=== PATIENT | male | born 1965 | race Caucasian/White ===

== ENCOUNTER 2017-01-26 20:39 | Emergency (ER) | payer OTHER ==
[~2017-01-26] VITALS: Ht 177.8 cm; Wt 83.5 kg
[2017-01-26 23:48] LABS: BASOPHIL % 0.4 % (0-2); PLATELET COUNT 274 x10^3mcL (130-400); RED CELL DISTRIBUTION WIDTH 14.3 % (11.5-14.5)
[2017-01-27 00:04] LABS: CARBON DIOXIDE 31.9 mmol/L (21-32); CHLORIDE SERUM 104 mmol/L (98-107); CREATININE SERUM 0.8 mg/dL (0.7-1.3); GFR1 > 60 mL/min; GLUCOSE SERUM 74 mg/dL (74-106); POTASSIUM SERUM 3.6 mmol/L (3.5-5.1); SODIUM SERUM 141 mmol/L (136-145)
[2017-01-27 00:06] LABS: ALBUMIN 3.6 g/dL (3.4-5.0); ALKALINE PHOSPHATASE 109 U/L (46-116); ALT/SGPT 29 U/L (16-63); AST/SGOT 15 U/L (15-37); BILIRUBIN TOTAL 0.4 mg/dL (0.20-1.00); LIPASE 60 IU/L (73-393); TOTAL PROTEIN, SERUM 7.1 g/dL (6.4-8.2)
[2017-01-27 02:28] VITALS: BP 132/78
== END 2017-01-27 02:28 | disposition home or self-care (01) ==
LOC: ED 20:39
PROVIDERS: Emergency Medicine
DX: M54.5 Low back pain (principal); R10.31 Right lower quadrant pain; E11.9 Type 2 diabetes mellitus without complications; Z90.49 Acquired absence of other specified parts of digestive tract; Z79.4 Long term (current) use of insulin
CPT/HCPCS: 36415; 82962; J2270

== ENCOUNTER 2017-01-30 16:09 | Inpatient (IN) | payer OTHER ==
[~2017-01-30] VITALS: Ht 177.8 cm; Wt 82.5 kg
--- NOTE | 2017-01-30 16:29 | NUR ---
PT RETURNED TO LOBBY PENDING ROOM AVAILABILITY. VSS. RESPS E/U. NO S/S OF DISTRESS NOTED.
--- NOTE | 2017-01-30 17:57 | NUR ---
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
--- NOTE | 2017-01-30 18:04 | NUR ---
PT REPORTS COMING TO ED TODAY DUE TO INCREASED PAIN TO BL LOWER BACK AND TAKING A "HIGH" BLOOD SUGAR READING AT HOME. PT REPORTS HE HAS NEVER BEEN IN [facility] IN THE PAST. PT SPEAKS IN FULL SENTENCES; SKIN COLOR IS WNL.
[2017-01-30 19:06] LABS: CALCIUM 9.6 mg/dL (8.5-10.1); CARBON DIOXIDE 28.2 mmol/L (21-32); CHLORIDE SERUM 94 mmol/L (98-107); CREATININE SERUM 1.3 mg/dL (0.7-1.3); GFR1 > 60 mL/min; GLUCOSE SERUM 392 mg/dL (74-106); POTASSIUM SERUM 3.8 mmol/L (3.5-5.1); SODIUM SERUM 130 mmol/L (136-145)
--- NOTE | 2017-01-30 19:10 | NUR ---
REC'D REPORT FROM VALERIE YANG TO ASSUME CARE OF THE PT.
[2017-01-30 19:11] LABS: ALBUMIN 3.9 g/dL (3.4-5.0); ALKALINE PHOSPHATASE 127 U/L (46-116); ALT/SGPT 35 U/L (16-63); AST/SGOT 16 U/L (15-37); BILIRUBIN TOTAL 0.54 mg/dL (0.20-1.00); TOTAL PROTEIN, SERUM 7.5 g/dL (6.4-8.2)
[2017-01-30 19:22] LABS: BASOPHIL % 0.3 % (0-2); PLATELET COUNT 294 x10^3mcL (130-400); RED CELL DISTRIBUTION WIDTH 13.4 % (11.5-14.5)
--- NOTE | 2017-01-30 19:30 | NUR ---
MEDICATED PT ORDERED. PLEASE SEE EMAR.
--- NOTE | 2017-01-30 20:32 | NUR ---
URINE FILM OR TAPE LIBRARIAN CARRIED TO LAB FOR US AND UDS AT THIS TIME.
--- NOTE | 2017-01-30 20:59 | NUR ---
MEDICATED PT FOR PAIN. PLEASE SEE EMAR.
[2017-01-30] MEDS ORDERED: WELLBUTRIN XL300 M1 PO (21:01)
[2017-01-30] MEDS ORDERED: CYMBALTA30 M1 PO (21:01)
[2017-01-30] MEDS ORDERED: GABAPENTIN300 M4 PO (21:03)
[2017-01-30] MEDS ORDERED: NOR10T PO (21:03)
--- NOTE | 2017-01-30 21:29 | NUR ---
REPORT GIVEN TO VALERIE PERES TO ASSUME CARE OF THE PT.
[2017-01-30 21:45] LABS: microscopic required? NO
--- NOTE | 2017-01-30 21:45 | NUR ---
RECEIVED PT FROM ED VIA [facility], CAME IN DUE TO HIGH BLOOD SUGAR AND BACK PAIN. AAOX4. NO SOB NOTED. DENIES CHEST PAIN/PRESSURE, ST W/ BBB, HR AT 106. DENIES ABDOMINAL DISCOMFORT. C/O 6/10 DULL AND STABBING LOWER BACK PAIN. W/ INULIN PUMP (HUMALOG 1 UNIT/HR AND HE DOES BOLUS DEPENDING ON HIS CALORIC INTAKE). DENIES ABDOMINAL DISCOMFORT. BOWEL SOUNDS ACTIVE. SIDE RAILS UPX2. CALL LIGHT ON REACH. ENDORSED TO PRIMARY NURSE SONA FOR CONTINUITY OF CARE.
--- NOTE | 2017-01-30 21:50 | NUR ---
RECEIVED PT FROM VALERIE BIRD. PT AOX4. TELE #49, ST WITH BBB. DENIES CP/PRESSURE. PULSES PRESENT, NO EDEMA NOTED. LUNG SOUNDS CLEAR, ON RA. DENIES SOB/DIFFICULTY BREATHING. BOWEL SOUNDS ACTIVE, PT REPORTS TENDERNESS WHEN PALPATING LOWER QUADRANT OF ABD. VOIDS FREELY, BRP. PT AMBULATORY. SKIN INTACT. IV IN LAC, INTACT AND PATENT. BED IN LOWEST POSITION. CALL LIGHT WITHIN REACH. WILL CONTINUE TO MONITOR.
[2017-01-30 21:52] LABS: UA SPECIFIC GRAVITY <=1.005 (1.005-1.035); urine erythrocyte NEGATIVE (NEGATIVE)
[2017-01-30 21:56] VITALS: BP 148/82
[2017-01-30 21:59] VITALS: BP 148/82
[2017-01-30 22:01] LABS: AMPHETAMINE QUAL UR NONE DETECTED (NEG <=1000)
[2017-01-30 22:03] VITALS: Ht 177.8 cm; Wt 82.5 kg
--- NOTE | 2017-01-31 02:46 | NUR ---
PT RESTING IN BED. RR EVEN AND UNLABORED. NO ACUTE DISTRESS NOTED. CALL LIGHT WITHIN REACH. BED IN LOWEST POSITION. WILL CONTINUE TO MONITOR.
[2017-01-31 05:53] VITALS: BP 133/68
[2017-01-31 06:20] LABS: BASOPHIL % 0.5 % (0-2); PLATELET COUNT 272 x10^3mcL (130-400); RED CELL DISTRIBUTION WIDTH 13.8 % (11.5-14.5)
[2017-01-31 06:32] LABS: CALCIUM 9.1 mg/dL (8.5-10.1); CARBON DIOXIDE 26.2 mmol/L (21-32); CHLORIDE SERUM 98 mmol/L (98-107); CREATININE SERUM 1.1 mg/dL (0.7-1.3); GFR1 > 60 mL/min; GLUCOSE SERUM 402 mg/dL (74-106); MAGNESIUM 2.2 mg/dL (1.8-2.4); POTASSIUM SERUM 4.7 mmol/L (3.5-5.1); SODIUM SERUM 135 mmol/L (136-145)
--- NOTE | 2017-01-31 07:17 | NUR ---
RECEIVED HANDOFF REPORT FROM NOC NURSE. PATIENT IS ALERT AND CALM. PATIENT IS TELE 49 MONITOR SHOWS SINUS TACHYCARDIA HR 114. PULSES ARE PRESENT NO EDEMA NOTED. PATIENT IS ON ROOM AIR, CHEST RISE EQUAL AND UNLABORED. PATIENT NOT SURE WHEN HE LAST HAD A BM, BOWEL SOUNDS ARE PRESENT BUT HYPOACTIVE. PATIENT DENIES NAUSEA AND ABDOMINAL PAIN. PATIENT STATES NO ISSUES WITH VOIDING. PATIENT STATES NO WEAKNESS UPON STANDING JUST BACK PAIN FROM PROLONGED TIME ON HIS FEET. SKIN IS WARM, DRY AND INTACT. PATIENT DENIES PAIN AT THIS TIME. PATIENT HAS NS INFUSING AT 80 ML/HR TO LAC SITE WNL. CALL LIGHT IS WITHIN REACH.
--- NOTE | 2017-01-31 08:23 | NUR ---
PATIENT IS SITTING UP IN BED LOOKING OVER LUNCH MENU. PATIENT IS NOT IN DISTRESS. PATIENT TOLERATED MEDICATIONS. 25 UNITS INSULIN LEVEMIR INJECTED INTO RIGHT ARM SQ. PATIENT DID NOT WANT TO INJECT IN ABDOMEN DUE TO SCARING. PATIENT EDUCTED ABOUT ABDOMEN ABSORBING MEDICATION BETTER, PATIENT VERBALIZED UNDERSTANDING BUT STILL WANTED INJECTION IN ARM.
--- NOTE | 2017-01-31 09:45 | NUR ---
PATIENT LAYING DOWN IN BED PATIENT STATES THAT HE IS PASSING GAS BUT DOES NOT HAVE THE URGE TO POOP YET PATIENT DENIES NAUSEA AND VOMITING.
[2017-01-31 10:20] VITALS: BP 116/64
--- NOTE | 2017-01-31 10:29 | NUR ---
DOCTOR STATED THAT PATIENT TO STAY TODAY TO MONITOR BLOOD SUGAR LEVELS. DOCTOR ADDED DUCOLAX AND SENOKOT AND LEVIMIR WHICH HAVE ALREADY BEEN GIVEN. FOLLOW UP ON WHETHER PATIENT HAS BOWEL MOVEMENT OR NOT.
--- NOTE | 2017-01-31 11:34 | NUR ---
PATIENT GIVEN 6 UNITS OF INSULIN FOR BLOOD SUGAR RESULT OF 237 IN RIGHT UPPER ARM BECAUSE PATIENT DOES NOT WANT INSULIN ADMINISTERED IN ABDOMEN DUE TO SCARRING. PATIENT ALSO STATED THAT WHILE GOING TO THE BATHROOM HE BEARED DOWN TO URINATE AND BECAME LIGHT ENDED, FELT LIKE "I WAS HAVING A PANIC ATTACK." PATIENT STATES THIS IS THE FIRST TIME IT HAS HAPPENED, HE HAS NERVE ISSUE THAT CAUSE HIM PROBLEMS IN OTHER AREAS BUT WANTED TO KNOW WHY THAT HAPPENED. EDUCATED PATIENT ABOUT NOT BEARING DOWN AND STIMULATING A VAGAL RESPONSE. PROVIDED PATIENT WITH URINAL AND INSTRUCTED HIM TO USE IT IF HE FEELS LIGHT HEADED UPON STANDING.
--- NOTE | 2017-01-31 12:00 | NUR ---
PATIENT SITTING UP IN BED. PATIENT IS NOT IN DISTRESS PATIENT STATES THAT HIS PAIN IS CONTROLLED AT THIS TIME. PATIENT STATES THAT HE DOESNT FEEL BLOATED OR DISTENDED PATIENT STATES NO NAUSEA OR VOMITING. PATIENT STATES PASSING GAS BUT UNABLE TO POOP AT THIS TIME. CALL LIGHT WITHIN REACH.
--- NOTE | 2017-01-31 13:15 | NUR ---
PATIENT IS RESTING IN BED, PATIENT STATES PAIN IS TOLERABLE AT THIS TIME. PATIENT IS NOT IN DISTRESS, CHEST RISE EQUAL AND UNLABORED. CALL LIGHT IS WITHIN REACH.
--- NOTE | 2017-01-31 15:48 | NUR ---
PATIENT RESTING IN BED PATIENT STATES PAIN IS TOLERABLE AT THIS TIME. PATIENT IS NOT IN DISTRESS. PATIENT IS ON ROOM AIR, BREATHING IS EVEN AND UNLABORED. CALL LIGHT IS WITHIN REACH.
--- NOTE | 2017-01-31 17:28 | NUR ---
PATIENT IS LAYING DOWN IN BED. PATIENT IS NOT IN DISTRESS, PATIENT STATES PAIN IS ADEQUATELY CONTROLLED AT THIS TIME. PATIENT DENIES ABDOMINAL PAIN, DISTENTION, BLOATING, NAUSEA AND VOMITING. PATIENT STATES PASSING GAS, "I FEEL LIKE A POOP IS BUILDING BUT ITS JUST NOT READY YET." CALL LIGHT WITHIN REACH.
--- NOTE | 2017-01-31 18:33 | NUR ---
PATIENT TOLERATED DINNER. PATIENT IS ALERT AND ORIENTED X4 PATIENT IS TELE 49 NSR HR OF 90. NO EDEMA OBSERVED, SCDS AT BEDSIDE BUT NOT ON DUE TO FREQUENT BATHROOM TRIPS. PATIENT IS ON ROOM AIR, RR IS 18. PATIENT IS NOT IN DISTRESS, CHEST RISE IS EQUAL AND UNLABORED. PATIENT DENIES ABDOMINAL PAIN, NAUSEA, VOMITING. PATIENT CANNOT REMEMBER THE LAST TIME HE HAD A BM BUT STATES HE IS PASSING GAS. PATIENT STATES NO ISSUES WITH VOIDING. PATIENT STATES THAT HE HAS PAIN TO HIS BACK BUT THAT AT THIS TIME THE PAIN IS ADEQUATELY CONTROLLED WITH NORCO. PATIENT HAS NS INFUSING AT 80 ML/HR TO LAC, SITE WNL. CALL LIGHT IS WITHIN REACH.
[2017-01-31 18:46] VITALS: BP 124/86
[2017-01-31 19:45] VITALS: BP 118/71
--- NOTE | 2017-01-31 19:45 | NUR ---
PATIENT RECEIVED IN BED AWAKE, ALERT AND ORIENTED X4, SPEECH CLEAR. BREATHING EVEN AND UNLABORED, BS CLEAR, PATIENT ON ROOM AIR SAT 97%,DENIES SOB. DENIES CHEST PAINS, HR=65BPM, RHYTHM REGULAR, TELE#49 SR W/ BBB. IV SITE CHANGED PER PATIENT REQUEST. AMBULATORY WITH STEADY GAIT, PATIENT CLAIMED THAT HE HAD CHRONIC BACK PAIN AND REQUIRES PAIN MEDS, STATED PAIN IS AT 4/10 NOW BEARABLE, INFORMED ABOUT PAIN MANAGEMENT. PATIENT STATED BEEN PASSIN GAS AND FEELS HE'LL EVENTUALLY HAVE BM IN AM. APPETITE GOOD, DENIES N/V. PATIENT HAD AN INPLANTED INSULIN PUMP WHICH IS OFF THIS TIME ,NOTED RT SIDE OF ABDOMEN. SAFETY PRECAUTIONS MAINTAINED. WILL CONTINUE TO MONITOR.
--- NOTE | 2017-01-31 21:02 | NUR ---
MEDICATED WITH NORCO FOR COMPLAINT OF GENERALIXED BODY PAIN BACK MORE PRONOUNCED TO HIS BACK. MEDICATED PRN ,MADE COMFORTABLE IN BED. WILL CHECK EFFECTIVENESS.
--- NOTE | 2017-01-31 22:00 | NUR ---
CHECKED EFFECTIVENESS OF PAIN MEDS,STATED PAIN IS SLOWLY SUBSIDING.
--- NOTE | 2017-02-01 00:07 | NUR ---
PATIENT CALLED AND STATED HE THINKS HIS BLOOD SUGAR LEVEL IS LOW. CHECKED IMMEDIATLEY AND IT WAS 51 FIRST AND 41 SECOND, PATIENT IS RESPONSIVE AND ORIENTED, DIAPHORETIC, WILL GIVE D50 PER PROTOCOL AND WILL ORDER STAT SERUM GLUCOSE.
--- NOTE | 2017-02-01 00:49 | NUR ---
RE-CHECKED BS AFTER D50 1 AMP GIVEN WAS 152. PATIEN STATED FEELING BETTER. ALSO COMPLAINED OF GENERALIZED BODY PAIN MOSTLY BACK, MEDICATED PRN. WILL CHECK EFFECTIVENESS.
--- NOTE | 2017-02-01 01:46 | NUR ---
PATIENT SLEEPING EASILY AWAKEN, STATED PAIN AT 1/10 COMFORTABLE.
--- NOTE | 2017-02-01 06:10 | NUR ---
PATIENT RESTED WELL AND SLEPT OFF AND ON DURING THE SHIFT. HAD X1 EPISOD OF HYPOGLYCEMIA, PROTOCOL INITIATED. COMPLAINED OF PAIN AND RECEIVED RELIEF. IV SITE NO SIGN OF INFILTRATION. NO BM AFTER SENOKOT AND DULCOLAX GIVEN. STATED ONLY PASSING GAS. SAFETY OBSERVED. WILL ENDORSE CARE TO INCOMING NURSE.
[2017-02-01 06:28] LABS: BASOPHIL % 0.5 % (0-2); PLATELET COUNT 215 x10^3mcL (130-400); RED CELL DISTRIBUTION WIDTH 14.1 % (11.5-14.5)
[2017-02-01 06:48] VITALS: BP 144/81
[2017-02-01 06:49] LABS: CALCIUM 8.7 mg/dL (8.5-10.1); CARBON DIOXIDE 29.9 mmol/L (21-32); CHLORIDE SERUM 105 mmol/L (98-107); CREATININE SERUM 0.8 mg/dL (0.7-1.3); GFR1 > 60 mL/min; GLUCOSE SERUM 140 mg/dL (74-106); SODIUM SERUM 141 mmol/L (136-145)
--- NOTE | 2017-02-01 07:24 | NUR ---
BEDSIDE REPORT AND INTRODUCTION PERFORMED WITH INCOMING NURSE MARLYN.
--- NOTE | 2017-02-01 07:30 | NUR ---
RECEIVED PATIENT RESTING IN BED COMFORTABLY A/O X4, CLEAR SPEECH, NO NEURO DEFICITS NOTED. TELE # [address], DENIES CHEST PAIN. BREATHIG EVEN UNLABBORED ON RA, DENIES SOB, NO DISTRESS NOTED. PATIENT STATES HE IS PASSING GAS BUT NO BM YET. PATIENT C/O DULL BACK PAIN 05/22, TOLERABLE AT THIS TIME, WILL MONITOR PAIN LEVEL. IV TO LFA INTACT INFUSING NS AT 80 ML/HR FREE FROM REDNESS AND INFILTRATION. PATIENT CALM WITH CARE. INSTRUCTED TO CALL FOR ASSISTANCE IF NEEDED. CALL LIGHT WITHIN REACH, BED IN LOW POSITION. WILL MONITOR.
--- NOTE | 2017-02-01 08:10 | NUR ---
PATIENT C/O DULL BACK PAIN 08/22, NORCO 10 1 TAB PO Q4H PRN GIVEN AT THIS TIME PER MD ORDER. ALL NEEDS ATTENDED TO. SAFETY PRECAUTIONS MAINTAINED. WILL MONITOR.
[2017-02-01 09:47] VITALS: BP 144/81
--- NOTE | 2017-02-01 10:14 | NUR ---
PATIENT TO BE DISCHARGED HOME PER MD ORDER. PATIENTS DISCHARGE INSTRUCTIONS, PRESCRIPTION, AND EDUCATION GIVEN TO PATIENT. VERBALIZED UNDERSTANDING TO FOLLOW UP WITH PCP WITHIN 3-5 DAYS AFTER DISCHARGE. ALL QUESTIONS AND CONCERNS ADDRESSED. IV TO LFA REMOVED, CATH INTACT. ID BANDS REMOVED, TELE MONITOR REMOVED. PATIENT STABLE FOR DISCHARGE. ASSISTED DOWN TO LOBBY ACCOMPANIED BY NURSE AID. ALL PERSONAL BELONGINGS SENT HOME WITH PATIENT.
== END 2017-02-01 10:13 | disposition home or self-care (01) | DRG 420 ==
LOC: ED 16:09 → DU 20:45
PROVIDERS: Emergency Medicine; Internal Medicine Pulmonary Disease; ADMIT Internal Medicine Pulmonary Disease
DX: E11.65 Type 2 diabetes mellitus with hyperglycemia (principal); G89.29 Other chronic pain; M54.9 Dorsalgia, unspecified; K59.00 Constipation, unspecified; Z96.41 Presence of insulin pump (external) (internal); Z79.4 Long term (current) use of insulin; Z90.49 Acquired absence of other specified parts of digestive tract
CPT/HCPCS: 36600; 82947; 82962; 83880; G0480; J1815; J2270; J2405; J3490; J7030

== ENCOUNTER 2017-02-16 09:11 | Inpatient (IN) | payer OTHER ==
[~2017-02-16] VITALS: Ht 177.8 cm; Wt 83.7 kg
[~2017-02-16 09:11] MED LIST: CYMBALTA30 M1 PO; GABAPENTIN300 M4 PO; NOR10T PO; WELLBUTRIN XL300 M1 PO
[2017-02-16 10:08] LABS: BASOPHIL % 0.5 % (0-2); PLATELET COUNT 272 x10^3mcL (130-400)
[2017-02-16 10:16] LABS: CALCIUM 9.3 mg/dL (8.5-10.1); CARBON DIOXIDE 29.4 mmol/L (21-32); CHLORIDE SERUM 105 mmol/L (98-107); CREATININE SERUM 0.9 mg/dL (0.7-1.3); GFR1 > 60 mL/min; GLUCOSE SERUM 200 mg/dL (74-106); POTASSIUM SERUM 4.6 mmol/L (3.5-5.1); SODIUM SERUM 139 mmol/L (136-145)
[2017-02-16 10:22] LABS: ALKALINE PHOSPHATASE 112 U/L (46-116); ALT/SGPT 37 U/L (16-63); AST/SGOT 16 U/L (15-37); BILIRUBIN TOTAL 0.39 mg/dL (0.20-1.00); TOTAL PROTEIN, SERUM 7.8 g/dL (6.4-8.2)
[2017-02-16 10:24] LABS: CHOLESTEROL 204 mg/dL (<200)
[2017-02-16 11:22] LABS: AMPHETAMINE QUAL UR NONE DETECTED (NEG <=1000)
[2017-02-16 14:34] VITALS: BP 141/73
[2017-02-16 14:42] LABS: microscopic required? YES; urine erythrocyte NEGATIVE (NEGATIVE)
[2017-02-16 16:31] VITALS: BP 141/73
== END 2017-02-16 16:35 | disposition home or self-care (01) | DRG 47 ==
LOC: ED 09:11 → MU 11:26 → DU 11:26
PROVIDERS: Specialist; ADMIT Internal Medicine Pulmonary Disease
DX: G45.9 Transient cerebral ischemic attack, unspecified (principal); E11.40 Type 2 diabetes mellitus with diabetic neuropathy, unspecified; F17.210 Nicotine dependence, cigarettes, uncomplicated; F12.10 Cannabis abuse, uncomplicated; Z90.49 Acquired absence of other specified parts of digestive tract
CPT/HCPCS: 82962; 83880; G0480; J3490; Q0092

== ENCOUNTER 2017-03-07 20:50 | Emergency (ER) | payer OTHER ==
[~2017-03-07] VITALS: Ht 177.8 cm; Wt 84.9 kg
[2017-03-07 21:09] VITALS: BP 141/87; Ht 177.8 cm; Wt 84.9 kg
== END 2017-03-07 22:02 | disposition home or self-care (01) ==
LOC: ED 20:50
DX: G89.29 Other chronic pain (principal); M54.5 Low back pain; E11.9 Type 2 diabetes mellitus without complications; Z86.73 Personal history of transient ischemic attack (TIA), and cerebral infarction without residual deficits; Z87.442 Personal history of urinary calculi; Z90.49 Acquired absence of other specified parts of digestive tract
CPT/HCPCS: J1885

== ENCOUNTER 2017-03-17 00:04 | Emergency (ER) | payer OTHER ==
[2017-03-17 03:59] VITALS: BP 150/82
== END 2017-03-17 03:59 | disposition home or self-care (01) ==
LOC: ED 00:04
DX: G89.29 Other chronic pain (principal); M54.5 Low back pain
CPT/HCPCS: J1885

== ENCOUNTER 2017-04-05 10:17 | Emergency (ER) | payer OTHER ==
[2017-04-05 11:23] VITALS: BP 122/83
[2017-04-05] MEDS ORDERED: HUMALOG100 U/ML SC (18:42)
== END 2017-04-05 11:23 | disposition home or self-care (01) ==
LOC: ED 10:17
DX: G89.29 Other chronic pain (principal); R07.89 Other chest pain; M54.6 Pain in thoracic spine; M54.5 Low back pain; M25.561 Pain in right knee; M25.562 Pain in left knee; M25.551 Pain in right hip; M25.552 Pain in left hip; E11.9 Type 2 diabetes mellitus without complications; Z79.4 Long term (current) use of insulin
CPT/HCPCS: J1885

== ENCOUNTER 2017-04-05 17:14 | Inpatient (IN) | payer OTHER ==
[~2017-04-05] VITALS: Ht 177.8 cm; Wt 80.7 kg
[2017-04-05 18:24] LABS: CALCIUM 8.7 mg/dL (8.5-10.1); CARBON DIOXIDE 29.5 mmol/L (21-32); CHLORIDE SERUM 102 mmol/L (98-107); GFR1 > 60 mL/min; GLUCOSE SERUM 293 mg/dL (74-106); POTASSIUM SERUM 3.8 mmol/L (3.5-5.1); SODIUM SERUM 140 mmol/L (136-145)
[2017-04-05 18:29] LABS: ALBUMIN 3.3 g/dL (3.4-5.0); ALKALINE PHOSPHATASE 79 U/L (46-116); ALT/SGPT 30 U/L (16-63); AST/SGOT 11 U/L (15-37); BILIRUBIN TOTAL 0.3 mg/dL (0.20-1.00); TOTAL PROTEIN, SERUM 6.4 g/dL (6.4-8.2)
[2017-04-05 18:30] LABS: BASOPHIL % 0.8 % (0-2); PLATELET COUNT 232 x10^3mcL (130-400); RED CELL DISTRIBUTION WIDTH 12.9 % (11.5-14.5)
[2017-04-05] MEDS ORDERED: HUMALOG100 U/ML SC (18:42)
[2017-04-05 19:59] VITALS: BP 142/82
[2017-04-05 20:03] VITALS: Ht 177.8 cm; Wt 80.7 kg
[2017-04-05 21:00] VITALS: BP 157/85
[2017-04-06 05:32] VITALS: BP 122/75
[2017-04-06 06:08] VITALS: BP 131/73
[2017-04-06 08:25] LABS: CALCIUM 8.7 mg/dL (8.5-10.1); CARBON DIOXIDE 29.8 mmol/L (21-32); CHLORIDE SERUM 107 mmol/L (98-107); CHOLESTEROL 153 mg/dL (<200); CHOLESTEROL/HDL RATIO 3.3; CREATININE SERUM 0.8 mg/dL (0.7-1.3); GFR1 > 60 mL/min; GLUCOSE SERUM 111 mg/dL (74-106); HDL CHOLESTEROL 47 mg/dL (40-60); POTASSIUM SERUM 3.6 mmol/L (3.5-5.1); SODIUM SERUM 144 mmol/L (136-145); TRIGLYCERIDES 98 mg/dL (<150)
[2017-04-06 08:56] VITALS: BP 139/73
[2017-04-06 12:59] VITALS: BP 139/73
== END 2017-04-06 13:25 | disposition home or self-care (01) | DRG 203 ==
LOC: ED 17:14 → DU 18:43
PROVIDERS: Emergency Medicine; Internal Medicine Pulmonary Disease
DX: R07.89 Other chest pain (principal); E11.40 Type 2 diabetes mellitus with diabetic neuropathy, unspecified; M51.36 Other intervertebral disc degeneration, lumbar region; Z87.442 Personal history of urinary calculi; Z96.41 Presence of insulin pump (external) (internal); Z86.73 Personal history of transient ischemic attack (TIA), and cerebral infarction without residual deficits; G89.29 Other chronic pain; M54.9 Dorsalgia, unspecified
CPT/HCPCS: 82962; 83880; 85378; J2270; J3010; J7030

== ENCOUNTER 2017-06-10 15:29 | Emergency (ER) | payer OTHER ==
[~2017-06-10] VITALS: Ht 177.8 cm; Wt 81.6 kg
[~2017-06-10 15:29] MED LIST changes: +HUMALOG100 U/ML SC
[2017-06-10 15:47] VITALS: Ht 177.8 cm; Wt 81.6 kg
[2017-06-10 17:33] VITALS: BP 113/74
== END 2017-06-10 17:33 | disposition home or self-care (01) ==
LOC: ED 15:29
DX: M54.42 Lumbago with sciatica, left side (principal); M54.41 Lumbago with sciatica, right side; G89.29 Other chronic pain; F17.210 Nicotine dependence, cigarettes, uncomplicated; E11.9 Type 2 diabetes mellitus without complications; Z71.6 Tobacco abuse counseling; Z90.49 Acquired absence of other specified parts of digestive tract
CPT/HCPCS: 99406; J1885; J2270; Q0162

== ENCOUNTER 2017-06-28 22:01 | Emergency (ER) | payer OTHER ==
[~2017-06-28] VITALS: Ht 175.3 cm; Wt 85.7 kg
[2017-06-28 22:20] VITALS: Ht 175.3 cm; Wt 85.7 kg
[2017-06-28 23:23] LABS: BASOPHIL % 0.7 % (0-2); PLATELET COUNT 248 x10^3mcL (130-400); RED CELL DISTRIBUTION WIDTH 13.8 % (11.5-14.5)
[2017-06-28 23:32] LABS: CALCIUM 8.4 mg/dL (8.5-10.1); CARBON DIOXIDE 30.1 mmol/L (21-32); CHLORIDE SERUM 108 mmol/L (98-107); GFR1 > 60 mL/min; GLUCOSE SERUM 297 mg/dL (74-106); POTASSIUM SERUM 4.1 mmol/L (3.5-5.1); SODIUM SERUM 142 mmol/L (136-145)
[2017-06-28 23:38] LABS: ALBUMIN 3.4 g/dL (3.4-5.0); ALKALINE PHOSPHATASE 67 U/L (46-116); ALT/SGPT 44 U/L (16-63); AST/SGOT 23 U/L (15-37); BILIRUBIN TOTAL 0.5 mg/dL (0.20-1.00)
[2017-06-28 23:44] LABS: TOTAL PROTEIN, SERUM 5.8 g/dL (6.4-8.2)
[2017-06-29 01:48] VITALS: BP 125/83
== END 2017-06-29 01:48 | disposition home or self-care (01) ==
LOC: ED 22:01
PROVIDERS: Emergency Medicine
DX: G89.29 Other chronic pain (principal); R07.89 Other chest pain; E11.9 Type 2 diabetes mellitus without complications; Z90.49 Acquired absence of other specified parts of digestive tract
CPT/HCPCS: J1885; J2270

== ENCOUNTER 2017-06-30 22:43 | Emergency (ER) | payer OTHER ==
[~2017-06-30] VITALS: Ht 177.8 cm; Wt 80.7 kg
[2017-07-01 05:01] VITALS: BP 132/105
[2017-07-01] MEDS ORDERED: NEURONTIN100 MG (18:24)
[2017-07-01] MEDS ORDERED: ASPIR 8181 MG PO (18:24)
== END 2017-07-01 05:01 | disposition home or self-care (01) ==
LOC: ED 22:43
DX: G89.29 Other chronic pain (principal); M54.5 Low back pain; E11.9 Type 2 diabetes mellitus without complications; Z86.73 Personal history of transient ischemic attack (TIA), and cerebral infarction without residual deficits; Z90.49 Acquired absence of other specified parts of digestive tract
CPT/HCPCS: 82962; J1885; J2270

== ENCOUNTER 2017-07-01 15:54 | Observation (INO) | payer OTHER ==
[~2017-07-01] VITALS: Ht 177.8 cm; Wt 81.2 kg
[2017-07-01] MEDS ORDERED: NEURONTIN100 MG (18:24)
[2017-07-01] MEDS ORDERED: ASPIR 8181 MG PO (18:24)
[2017-07-01 18:25] LABS: BASOPHIL % 0.5 % (0-2); PLATELET COUNT 278 x10^3mcL (130-400); RED CELL DISTRIBUTION WIDTH 13.9 % (11.5-14.5)
[2017-07-01 18:26] LABS: ALBUMIN 3.5 g/dL (3.4-5.0); ALKALINE PHOSPHATASE 70 U/L (46-116); ALT/SGPT 33 U/L (16-63); AST/SGOT 15 U/L (15-37); BILIRUBIN TOTAL 0.34 mg/dL (0.20-1.00); CALCIUM 8.6 mg/dL (8.5-10.1); CARBON DIOXIDE 29.6 mmol/L (21-32); CHLORIDE SERUM 102 mmol/L (98-107); CREATININE SERUM 0.7 mg/dL (0.7-1.3); GFR1 > 60 mL/min; GLUCOSE SERUM 143 mg/dL (74-106); POTASSIUM SERUM 3.8 mmol/L (3.5-5.1); TOTAL PROTEIN, SERUM 6.4 g/dL (6.4-8.2)
[2017-07-01 18:34] LABS: SODIUM SERUM 121 mmol/L (136-145)
[2017-07-01 20:09] VITALS: BP 139/70
[2017-07-02 05:35] VITALS: BP 143/74
[2017-07-02 08:37] LABS: CALCIUM 8.2 mg/dL (8.5-10.1); CARBON DIOXIDE 29.7 mmol/L (21-32); CHLORIDE SERUM 107 mmol/L (98-107); CREATININE SERUM 0.8 mg/dL (0.7-1.3); GFR1 > 60 mL/min; GLUCOSE SERUM 108 mg/dL (74-106); POTASSIUM SERUM 4.1 mmol/L (3.5-5.1); SODIUM SERUM 142 mmol/L (136-145)
[2017-07-02 08:57] VITALS: BP 135/73
[2017-07-02 13:04] VITALS: BP 135/73
== END 2017-07-02 14:41 | disposition home or self-care (01) | DRG 347 ==
LOC: ED 15:54 → MU 18:09 → IC 18:09 → MU 18:09
PROVIDERS: Internal Medicine; Specialist
DX: M47.26 Other spondylosis with radiculopathy, lumbar region (principal); E11.40 Type 2 diabetes mellitus with diabetic neuropathy, unspecified; F17.210 Nicotine dependence, cigarettes, uncomplicated; F12.10 Cannabis abuse, uncomplicated; Z79.4 Long term (current) use of insulin; Z96.41 Presence of insulin pump (external) (internal)
CPT/HCPCS: 82962; G0378; J1100; J1170; J1650; J1885; J2270; J2405; Q0162

== ENCOUNTER 2017-07-05 22:05 | Emergency (ER) | payer OTHER ==
[~2017-07-05] VITALS: Ht 177.8 cm; Wt 80.9 kg
[~2017-07-05 22:05] MED LIST changes: +ASPIR 8181 MG PO; +NEURONTIN100 MG
[2017-07-05 22:54] VITALS: Ht 177.8 cm; Wt 80.9 kg
[2017-07-06 05:25] VITALS: BP 122/70
== END 2017-07-06 05:25 | disposition home or self-care (01) ==
LOC: ED 22:05
DX: M51.36 Other intervertebral disc degeneration, lumbar region (principal); E11.9 Type 2 diabetes mellitus without complications; Z79.4 Long term (current) use of insulin
CPT/HCPCS: J1170; J1885

== ENCOUNTER 2017-07-08 17:34 | Emergency (ER) | payer OTHER ==
[~2017-07-08] VITALS: Ht 177.8 cm; Wt 78.9 kg
[2017-07-08 17:46] VITALS: Ht 177.8 cm; Wt 78.9 kg
[2017-07-08 21:27] VITALS: BP 123/90
== END 2017-07-08 21:27 | disposition home or self-care (01) ==
LOC: ED 17:34
DX: G89.29 Other chronic pain (principal); M54.5 Low back pain; M51.36 Other intervertebral disc degeneration, lumbar region; E11.9 Type 2 diabetes mellitus without complications
CPT/HCPCS: J1170; J1885; Q0162

== ENCOUNTER 2017-08-25 18:39 | Emergency (ER) | payer OTHER ==
[~2017-08-25] VITALS: Ht 177.8 cm; Wt 79.4 kg
[2017-08-25 18:49] VITALS: Ht 177.8 cm; Wt 79.4 kg
[2017-08-25 19:53] LABS: CARBON DIOXIDE 27.3 mmol/L (21-32); CHLORIDE SERUM 106 mmol/L (98-107); CREATININE SERUM 0.9 mg/dL (0.7-1.3); GFR1 > 60 mL/min; GLUCOSE SERUM 120 mg/dL (74-106); POTASSIUM SERUM 3.9 mmol/L (3.5-5.1); SODIUM SERUM 142 mmol/L (136-145)
[2017-08-25 19:57] LABS: ALBUMIN 3.5 g/dL (3.4-5.0); ALKALINE PHOSPHATASE 83 U/L (46-116); ALT/SGPT 35 U/L (16-63); AST/SGOT 18 U/L (15-37); BASOPHIL % 0.7 % (0-2); BILIRUBIN TOTAL 0.3 mg/dL (0.20-1.00); PLATELET COUNT 261 x10^3mcL (130-400); RED CELL DISTRIBUTION WIDTH 13.8 % (11.5-14.5); TOTAL PROTEIN, SERUM 6.6 g/dL (6.4-8.2); UA SPECIFIC GRAVITY >=1.030 (1.005-1.035); microscopic required? YES; urine erythrocyte NEGATIVE (NEGATIVE)
[2017-08-25 20:09] VITALS: BP 129/73
== END 2017-08-25 20:42 | disposition home or self-care (01) ==
LOC: ED 18:39
PROVIDERS: Emergency Medicine
DX: M54.5 Low back pain (principal); E11.9 Type 2 diabetes mellitus without complications; Z86.73 Personal history of transient ischemic attack (TIA), and cerebral infarction without residual deficits; F17.210 Nicotine dependence, cigarettes, uncomplicated
CPT/HCPCS: J1885; J2405; J7030

== ENCOUNTER 2017-09-05 16:29 | Emergency (ER) | payer OTHER ==
[~2017-09-05] VITALS: Ht 177.8 cm; Wt 80.5 kg
[2017-09-05 16:44] VITALS: Ht 177.8 cm; Wt 80.5 kg
[2017-09-05 17:15] LABS: BASOPHIL % 0.4 % (0-2); PLATELET COUNT 235 x10^3mcL (130-400); RED CELL DISTRIBUTION WIDTH 14.2 % (11.5-14.5)
[2017-09-05 17:27] LABS: CALCIUM 8.4 mg/dL (8.5-10.1); CARBON DIOXIDE 23.3 mmol/L (21-32); CHLORIDE SERUM 105 mmol/L (98-107); CREATININE SERUM 0.9 mg/dL (0.7-1.3); GFR1 > 60 mL/min; GLUCOSE SERUM 305 mg/dL (74-106); POTASSIUM SERUM 3.8 mmol/L (3.5-5.1); SODIUM SERUM 140 mmol/L (136-145)
[2017-09-05 17:32] LABS: ALBUMIN 3.3 g/dL (3.4-5.0); ALKALINE PHOSPHATASE 82 U/L (46-116); ALT/SGPT 30 U/L (16-63); AST/SGOT 8 U/L (15-37); BILIRUBIN TOTAL 0.4 mg/dL (0.20-1.00); CHOLESTEROL 169 mg/dL (<200); HDL CHOLESTEROL 39 mg/dL (40-60); PHOSPHOROUS 4.9 mg/dL (2.5-4.9); TOTAL PROTEIN, SERUM 6.3 g/dL (6.4-8.2); URIC ACID 1.9 mg/dL (3.5-7.2)
[2017-09-05 19:45] VITALS: BP 121/72
== END 2017-09-05 19:45 | disposition home or self-care (01) ==
LOC: ED 16:29
PROVIDERS: Emergency Medicine
DX: M54.40 Lumbago with sciatica, unspecified side (principal); R42 Dizziness and giddiness; I10 Essential (primary) hypertension; E11.9 Type 2 diabetes mellitus without complications; Z86.73 Personal history of transient ischemic attack (TIA), and cerebral infarction without residual deficits; Z90.49 Acquired absence of other specified parts of digestive tract
CPT/HCPCS: 83880; J3010; J3490; J7030

== ENCOUNTER 2018-05-05 13:25 | Emergency (ER) | payer OTHER | END 2018-05-05 16:24 | disposition home or self-care (01) | LOC: ED 13:25 ==

== ENCOUNTER 2018-05-15 11:55 | Emergency (ER) | payer OTHER ==
[~2018-05-15] VITALS: Ht 180.3 cm; Wt 77.1 kg
[2018-05-15 12:13] VITALS: Ht 180.3 cm; Wt 77.1 kg
[2018-05-15 12:55] LABS: CALCIUM 8.9 mg/dL (8.5-10.1); CARBON DIOXIDE 28.8 mmol/L (21-32); CHLORIDE SERUM 101 mmol/L (98-107); CREATININE SERUM 0.8 mg/dL (0.7-1.3); GFR1 > 60 mL/min; GLUCOSE SERUM 300 mg/dL (74-106); POTASSIUM SERUM 4.7 mmol/L (3.5-5.1); SODIUM SERUM 136 mmol/L (136-145)
[2018-05-15 13:00] LABS: ALBUMIN 3.4 g/dL (3.4-5.0); ALKALINE PHOSPHATASE 75 U/L (46-116); ALT/SGPT 44 U/L (16-63); AST/SGOT 27 U/L (15-37); BILIRUBIN TOTAL 0.21 mg/dL (0.20-1.00); TOTAL PROTEIN, SERUM 6.7 g/dL (6.4-8.2)
[2018-05-15 13:10] LABS: RED CELL DISTRIBUTION WIDTH 14.9 % (11.5-14.5)
[2018-05-15 13:11] LABS: PLATELET COUNT 212 x10^3mcL (130-400)
[2018-05-15 13:51] LABS: ATYPICAL LYMPH 2 %; BAND NEUTROPHIL 0 % (0-10); BASOPHIL 2 % (0-2); MONOCYTE 3 % (0-7); SEGMENTED NEUTROPHILS 85 % (37-75)
[2018-05-15 13:52] LABS: PLATELET MORPHOLOGY PLATELETS DECREASED
[2018-05-15 13:53] LABS: rbc morphology (normal/abnorm) ABNORMAL (NORMAL)
[2018-05-15 14:24] VITALS: BP 137/84
== END 2018-05-15 14:24 | disposition home or self-care (01) ==
LOC: ED 11:55
PROVIDERS: Emergency Medicine
DX: R22.41 Localized swelling, mass and lump, right lower limb (principal); R22.42 Localized swelling, mass and lump, left lower limb; M79.661 Pain in right lower leg; M79.662 Pain in left lower leg; E11.9 Type 2 diabetes mellitus without complications; G56.00 Carpal tunnel syndrome, unspecified upper limb; M19.90 Unspecified osteoarthritis, unspecified site; Z87.442 Personal history of urinary calculi; Z90.49 Acquired absence of other specified parts of digestive tract; Z86.73 Personal history of transient ischemic attack (TIA), and cerebral infarction without residual deficits
CPT/HCPCS: 36415; 83880; Q0092